=== PATIENT | female | born 1940 | race Caucasian/White ===

== ENCOUNTER → 2019-06-20 | Outpatient (CLI) | payer MEDICARE ==
--- OUTSIDE RECORDS SUMMARY | 2019-06-20 16:34 | XMS REPORT | Clinical Summary ---
Author Author [facility] Organization [facility] Address Unknown Phone Unavailable Care Team Providers Care Lead Ramp Service Man Name Role Phone Asked, No Pcp PCP Unavailable Allergies Not on File Medications Not on file Active Problems Not on file Encounters Care Team Description Date Type Specialty Babs Olivera MD Screening breast examination 09/23/2018 Hospital Rad[facility] Encounter Babs Olivera MD Screening for osteoporosis 09/23/2018 Hospital Radiology Encounter Babs Olivera MD Screening breast examination (Primary Dx); Screening for osteoporosis 09/16/2018 Transcribe Access Orders after 06/19/2018 Social History Date Tobacco Use Types Packs/Day Years Used Never Assessed Sex Assigned at Date Recorded Not on file Industry Job Start Date Occupation Not on file Not on file Not on file Travel End Travel History Travel Start No recent travel history available. Last Filed Vital Signs Not on file Plan of Treatment Health Maintenance Due Date Last Done Comments SHINGLES VACCINES (#1) 1991 65+ PNEUMOCOCCAL VACCINE 2006 (1 of 2 - PCV13) INFLUENZA VACCINE 05/11/2019 Procedures Comments Procedure Name Priority Date/Time Associated Diagnosis MAMMO BREAST SCREEN Routine 09/23/2018 Screening breast TOMOSYNTHESIS BILATERAL 3:37 PM GRAPHIC DESIGNER examination BONE DENSITY Routine 09/23/2018 Screening for 2:49 PM GRAPHIC DESIGNER osteoporosis after 06/19/2018 Results * Mammo Breast Screen Tomosynthesis Bilateral (09/23/2018 3:37 PM GRAPHIC DESIGNER) Specimen Narrative Performed At EXAMINATION: MAMMO BREAST SCREEN TOMOSYNTHESIS BILATERAL [facility] COMPARISON:Mammograms dated 09/2014 and 09/2015 TECHNIQUE: Bilateral digital screening mammography was performed with tomosynthesis and interpreted using computer-assisted detection. CLINICAL HISTORY: 77-year-old asymptomatic female with history of previous benign bilateral breast biopsies. Family history notable for a sister diagnosed with breast cancer at age 65 and daughter diagnosed with breast cancer at unknown age. The patient presents for routine screening. FINDINGS: There are scattered fibroglandular densities. A benign-appearing coarse calcification is again seen in the posterior upper outer left breast. There are no new suspicious masses, calcifications or distortions in either breast.There has been no significant interval change compared to prior. IMPRESSION: No specific mammographic features of breast malignancy. BI-RADS 2:BENIGN Recommend comparison with physical examination. In the absence of new clinical findings, the patient should return for bilateral screening mammography in 1 year. This facility is accredited by the [employer] for Mammography. A negative x-ray report should not delay biopsy if a dominant or clinically suspicious mass is present.Not all cancers are identified by x-ray. [id number] Address City/State/Zipcode Phone Number [facility] [address] [place] [address] * Bone Density (09/23/2018 2:49 PM GRAPHIC DESIGNER) Specimen Narrative Performed At [facility]AMIN[facility] CL[facility]ICAL H[facility]ORY:Evaluation for osteoporosis. COMPARISON:None. The results of this study expressed as bone mineral density (BMD) were as follows: AP spine (L1-L4) BMD: 1.14 g/cm2 T-Score: - 0.3 Percent change: Not applicable Femoral Neck (Total Mean): BMD: 0.63 g/cm2 T-Score: - 2.9 Dual Femur (Total Mean): BMD: 0.73 g/cm2 T-Score: - 2.2 Percent change: Not applicable Dual femur FRAX: Risk factors: None. Impression: 1. Bone mineral density values as above. A copy of this scans including a report detailing these results will follow. Note: The world health organization (WHO) has classified the patient's T-score as follows: Above (-1) as normal (-1) to (-2.5) as low (osteopenia) Below (-2.5) as abnormally low (osteoporosis, increased fracture risk) [id number] Procedure Note Interface, Radiology Results Incoming - 09/23/2018 4:14 PM GRAPHIC DESIGNER EXAMINATION: BONE DENSITY CLINICAL HISTORY: Evaluation for osteoporosis. COMPARISON: None. The results of this study expressed as bone mineral density (BMD) were as follows: AP spine (L1-L4) BMD: 1.14 g/cm2 T-Score: - 0.3 Percent change: Not applicable Femoral Neck (Total Mean): BMD: 0.63 g/cm2 T-Score: - 2.9 Dual Femur (Total Mean): BMD: 0.73 g/cm2 T-Score: - 2.2 Percent change: Not applicable Dual femur FRAX: Risk factors: None. Impression: 1. Bone mineral density values as above. A copy of this scans including a report detailing these results will follow. Note: The world health organization (WHO) has classified the patient's T-score as follows: Above (-1) as normal (-1) to (-2.5) as low (osteopenia) Below (-2.5) as abnormally low (osteoporosis, increased fracture risk) [id number] Performing Organization Address City/State/Zipcode Phone Number [facility] [address] [place] [address] after 06/19/2018 Insurance Type Payer Benefit Subscriber ID Effective Phone Address Plan / Dates Group HMO UHC MEDICARE UNITED xxxxxxxxx 2017-P HEALTHCARE resent MEDICARE Advance Directives For more information, please contact: [phone] 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
--- NOTE | 2019-06-20 17:30 | Diagnostic Imaging Report ---
Sacrum, 2 views. Pelvis, 1 view. History: InterStim placement check. Findings: Right posterior stimulator device is present within the lead looped in the subcutaneous tissues and terminating posterior to the mid right sacrum. The soft tissues are normal. Bone mineralization is normal. There is no evidence of fracture or dislocation. There are no lytic or sclerotic lesions. Degenerative changes are noted in the lumbar spine. SI and hip joints are within normal limits.. IMPRESSION: No acute osseous abnormality. InterStim lead displaced posteriorly. Signed by: Chucky Mcqueen on 06/20/2019 5:26 PM
== END ==
LOC: RAD 16:32 → EDSTATUS 17:08 → RAD 17:08
PROVIDERS: ATTEND Urology
DX: R39.14 Feeling of incomplete bladder emptying (principal)
CPT/HCPCS: 72170; 72220

== ENCOUNTER → 2019-10-25 | Day surgery (SDC) | payer MEDICARE ==
[2019-10-24 16:05] LABS: BASOPHILS # (AUTO) 0.1 (0.0-0.1); BASOPHILS % 0.7 % (0.0-1.0); EOSINOPHILS # (AUTO) 0.4 (0.0-0.4); EOSINOPHILS % 5.7 % (0.0-6.0); HEMATOCRIT 39.8 % (34.2-44.1); HEMOGLOBIN 13.4 g/dL (12.0-16.0); LYMPHOCYTES # (AUTO) 2.7 (1.0-3.2); LYMPHOCYTES % 38.2 % (18.0-39.1); MEAN CORPUSCULAR HEMOGLOBIN 30.4 pg (28-32); MEAN CORPUSCULAR HGB CONC 33.7 g/dL (31-35); MEAN CORPUSCULAR VOLUME 90.2 fL (81-99); MONOCYTES # (AUTO) 0.5 (0.2-0.8); MONOCYTES % 7.3 % (4.4-11.3); NEUTROPHILS # (AUTO) 3.3 (2.1-6.9); NEUTROPHILS % 47.8 % (38.7-80.0); PLATELET COUNT 196 x10e3/uL (140-360); RED BLOOD COUNT 4.41 x10e6/uL (3.6-5.1)
--- NOTE | 2019-10-24 16:21 | Diagnostic Imaging Report ---
EXAMINATION: CHEST 2 VIEWS INDICATION: Pre-operative COMPARISON: None FINDINGS: LINES/TUBES:None LUNGS:The lungs are well-inflated. No focal consolidation or pulmonary edema. Marked elevation of the right hemidiaphragm. PLEURA:No pleural effusion or pneumothorax. MEDIASTINUM:The cardiomediastinal silhouette appears normal in size and shape. BONES/SOFT TISSUES:No acute osseous injury. ABDOMEN:No free air under the diaphragm. Status post cholecystectomy. IMPRESSION: No focal pneumonia or pulmonary edema. Marked elevation of the right hemidiaphragm. Signed by: Mary Mckeon MD on 10/24/2019 4:17 PM
[~2019-10-25] MED LIST: ABILIFY5 MG PO; ACETAMINOPHEN 1000 MG/100 ML IV ONE; ALPRAZOLAM0.25 MG PO; ARMOUR THYROID60 MG PO; BLACK COHOSH160 MG PO; BUPIVACAINE HCL 0.5% INJ 30 ML VIAL INJ ONE; CLINDAMYCIN 300MG 50 ML IV ONE; CYMBALTA30 MG PO; DEXAMETHASONE SOD PHOS INJ 4 MG/ML VIAL ONE; DICYCLOMINE HCL20 MG PO; FENTANYL CITRATE/PF 100MCG/2 ML INJ ONE; FLOMAX0.4 MG PO; GENTAMICIN 80MG/NS 100 ML 200 ML IV ONE; LIDOCAINE 2%/ EPINEPHRINE 20ML MDV ONE; LIDOCAINE HCL 2% JELLY 5 ML TUBE ONE; LIDOCAINE HCL 2% LOCAL INJ 5 ML SDV VIAL INJ ONE; MECLIZINE HCL PO; MIDAZOLAM HCL 2 MG/2 ML VIAL ONE; ONDANSETRON HCL INJ 2MG/ML 2ML 2 MG/ML VIAL ONE; PIPERACILLIN/TAZO 2.25 GM 50 ML IV ONE; PROPOFOL IV EMULSION 10 MG/ML 20 ML VIAL ONE; SEVOFLURANE INHAL SOLN 250 ML PEN BTL ONE; SIMVASTATIN40 MG PO
--- OUTSIDE RECORDS SUMMARY | 2019-10-25 12:29 | XMS REPORT ---
Author Author Admin, [place] Organization Unknown Address Unknown Phone Unavailable PROBLEMS Condition Status Date Provider Notes ANXIETY DISORDER, UNSPECIFIED active Remy Campos DEPRESSIVE DISORDER, MAJOR, RECURRENT EPISODE, UNSPECIFIED active Remy Campos ENCOUNTERS Date Type Provider Location Encounter Diagnosis - Ambulatory Encounter Remy Campos [facility] UNK - Ambulatory Encounter Remy Cmapos [facility] UNK - Ambulatory Encounter Remy Campos [facility] DEPRESSIVE DISORDER, MAJOR, RECURRENT EPISODE, UNSPECIFIEDANXIETY DISORDER, UNSPECIFIED - Ambulatory Encounter Kristel Juarez [facility] UNK - [facility] - Ambulatory Encounter [facility] UNK - [facility] Ambulatory Encounter [facility] UNK - Ambulatory [facility]counter [facility] UNK [facility] Ambulatory Encounter [facility] UNK - Ambulatory Encounter [facility] UNK [facility] Amb[facility] UNK [facility] Ambulatory Encounter [facility] UNK - Ambulatory Encounter [facility] UNK - Ambulatory Encounter [facility] UNK - Ambulatory Encounter [facility] UNK - Ambulatory Encounter [facility] UNK - Ambulatory Encounter [facility] UNK - Ambulatory Encounter [facility] UNK - Ambulatory Encounter [facility] UNK - Ambulatory Encounter [facility] UNK - Ambulatory Encounter [facility] UNK - Ambulatory Encounter [facility] UNK - Ambulatory Encounter [facility] UNK - Ambulatory Encounter [facility] UNK - Ambulatory Encounter [facility] UNK - Ambulatory Encounter [facility] UNK - Ambulatory Encounter [facility] Preload [facility] UNK - Ambulatory Encounter [facility] Preload [facility] UNK - Ambulatory Encounter [facility] Preload [facility] UNK - Ambulatory Encounter [facility] Preload [facility] UNK - Ambulatory Encounter [facility] UNK - Ambulatory Encounter [facility] P[facility] UNK - Ambulatory Encounter [facility] P[facility] UNK - Ambulatory Encounter [facility] P[facility] UNK [facility] Ambulatory Encounter [facility] P[facility] UNK - Ambulatory Encounter [facility] P[facility] UNK - Ambulatory Encounter [facility] P[facility] UNK [facility] Ambulatory Encounter [facility] P[facility] UNK - Ambulatory Encounter [facility] P[facility] UNK [facility] Ambulatory Encounter [facility] P[facility] UNK - Ambulatory Encounter [facility] P[facility] UNK - Ambulatory Encounter [facility] P[facility] UNK - Ambulatory Encounter [facility] P[facility] UNK - Ambulatory Encounter [facility] UNK VITAL SIGNS No Information Available Allergies No Known Allergy Information REASON FOR REFERRAL No Information Available RESULTS No Information Available HISTORY OF IMMUNIZATIONS No Information Available HISTORY OF MEDICATION USE Medication Instructions Dates Provider Comments ABILIFY 2 MG ORAL TABLET Take 1 tablet by mouth daily. Remy Campos DORZOLAMIDE HCL-TIMOLOL MAL 22.3-6.8 MG/ML OPHTHALMIC SOLUTION INSTILL 1 DROP IN BOTH EYES TWICE A DAY Remy Campos #10, 0 days supply, Prescribed by ANA TAYLOR, Filled 03/20/2019 SIMVASTATIN 40 MG ORAL TABLET TAKE ONE (1) TABLET(S) BY MOUTH ONCE A DAY. Remy Campos #90, 0 days supply, Prescribed by Filippo Bridges, Filled 07/20/2019 DULOXETINE HCL 30 MG ORAL CAPSULE DELAYED RELEASE PARTICLES TAKE ONE (1) CAPSULE(S) BY MOUTH TWICE A DAY AND ONE CAPSULE AT BEDTIME. Remy Campos #90, 0 days supply, Prescribed by MARY JANE GUILLERMO, Filled 07/20/2019 ARMOUR THYROID 120 MG ORAL TABLET TAKE 1 TABLET BY MOUTH EVERY DAY Remy Campos #30, 0 days supply, Prescribed by MARY JANE GUILLERMO, Filled 07/26/2019 TAMSULOSIN HCL 0.4 MG ORAL CAPSULE TAKE ONE (1) CAPSULE(S) BY MOUTH ONCE A DAY 30 MINUTES AFTER SUPPER. Remy Campos #90, 0 days supply, Prescribed by AARON NAVA, Filled 08/17/2019 SOCIAL HISTORY Date Observation Value Provider social history reviewed E&M reviewed today Remy Campos smoking status Never smoker [facility] smoking status Never smoker [facility] smoking status Never smoker [facility] smoking status Never smoker [facility] FUNCTIONAL STATUS No Information Available MENTAL STATUS Date Observation Value Provider mental status assessment, judgment fair Remy Campos " insight (mental status exam) fair Remy Campos " Mental Status Exam: intelligence adequate fund of information, intact memory processes, oriented to person, oriented to place, oriented to time, oriented to situation, oriented to reality Remy Campos " hallucinations none Remy Campos " thought content (mental status exam) (E&M) lucid Remy Campos " mental status assessment, process able to abstract, goal-directed, logical Remy Campos " mental status assessment, sensorium alert, attentive, clear Remy Campos " affect (mental status exam) congruent, intense, normal range Remy Campos " mood (mental status exam) worried, anxious Remy Campos " mental status assessment, speech activity normal flow, fast pace, normal pressure, normal rate, normal tone, normal volume, spontaneous Remy Campos " mental status assessment, motor activity normal gait, normal posture Remy Campos " behavior (mental status exam) appropriate, candid, cooperative, good eye contact, polite, responsive Remy Campos " mental appearance (mental status exam) adequate hygiene, appropriate dress, looks like stated age, neat Remy Campos " anxiety sleep disturbance Remy Campos MEDICAL EQUIPMENT No Information Available FAMILY HISTORY No Information Available INSURANCE PROVIDERS No Information Available ADVANCE DIRECTIVES No Information Available TREATMENT PLAN Date Name Diagnostic evaluation with medical - 15767 HISTORY OF PROCEDURES Procedure Date Procedure Name Provider Procedure Notes Status Diagnostic evaluation with medical - 95939 Remy Campos completed GOALS No Information Available HEALTH CONCERNS No Information Available
--- OUTSIDE RECORDS SUMMARY | 2019-10-25 12:29 | XMS REPORT ---
Author Author Admin, [place] Organization Unknown Address Unknown Phone Unavailable Problems No Known Problems ENCOUNTERS Date Type Provider Location Encounter Diagnosis - Ambulatory Encounter Remy Campos [facility] UNK - Ambulatory Encounter Remy Campos [facility] UNK - Ambulatory Encounter Kristel Harpreet Juarez [facility] UNK - Ambulatory [facility] Encounter [facility] Preload [facility] UNK - [facility] - [facility] - Ambulatory En[facility] - [facility] Ambulatory Encounter [facility]ism Preload [facility] UNK - Ambulatory Encounter [facility]ism Preload [facility] UNK - Ambulatory Encounter [facility]reload [facility] UNK - Ambulatory Encounter [facility] - [facility] UNK - Ambulatory Encounter Alevism Preload [facility] UNK - Ambulatory Encounter Ale[facility]ism P[facility] UNK - Ambulatory Encounter Ale[facility]ism [facility] UNK - Ambulatory Encounter Ale[facility]ism Preload [facility] UNK - Ambulatory Encounter Ale[facility]ism P[facility] UNK - Ambulatory Encounter Alevism Preload [facility] UNK - Ambulatory Encounter Alevism Preload [facility] UNK - Ambulatory Encounter Alevism Preload [facility] UNK - Ambulatory Encounter Alevism Preload [facility] UNK - Ambulatory Encounter Alevism Preload [facility] UNK - Ambulatory Encounter Alevism Preload [facility] UNK - Ambulatory Encounter Alevism Preload [facility] UNK - Ambulatory Encounter Alevism Preload [facility] UNK - Ambulatory Encounter Alevism Preload [facility] UNK - Ambulatory Encounter Alevism Preload [facility] UNK - Ambulatory Encounter Alevism Preload [facility] UNK - Ambulatory Encounter Alevism Preload [facility] UNK - Ambulatory Encounter [facility] Encounter [facility] Preload [facility] UNK - Ambulatory Encounter [facility]ism Preload [facility] UNK - Ambulatory Encounter [facility]ism Preload [facility] UNK - Ambulatory Encounter [facility]ism Preload [facility] UNK - Ambulatory Encounter [facility]ism Preload [facility] UNK - Ambulatory Encounter [facility]ism Preload [facility] UNK - Ambulatory Encounter Ale[facility]ism Preload [facility] UNK - Ambulatory Encounter Alevism Preload [facility] UNK - Ambulatory Encounter [facility]ism Preload [facility] UNK - Ambulatory Encounter Alevism Preload [facility] UNK VITAL SIGNS No Information Available Allergies No Known Allergy Information REASON FOR REFERRAL No Information Available RESULTS No Information Available HISTORY OF IMMUNIZATIONS No Information Available HISTORY OF MEDICATION USE Medication Instructions Dates Provider Comments DORZOLAMIDE HCL-TIMOLOL MAL 22.3-6.8 MG/ML OPHTHALMIC SOLUTION [...] social history reviewed E&M reviewed today Remy Coatsos smoking status Never smoker [facility] smoking status Never smoker [facility] smoking status Never smoker [facility] smoking status Never smoker [facility] FUNCTIONAL STATUS No Information Available MENTAL STATUS Date Observation Value Provider anxiety sleep disturbance Remy Campos MEDICAL EQUIPMENT No Information Available FAMILY HISTORY No Information Available INSURANCE PROVIDERS No Information Available ADVANCE DIRECTIVES No Information Available TREATMENT PLAN No Information Available HISTORY OF PROCEDURES No Information Available GOALS No Information Available HEALTH CONCERNS No Information Available
--- OUTSIDE RECORDS SUMMARY | 2019-10-25 12:29 | XMS REPORT ---
Author Author [facility] Address Unknown Phone Unavailable Care Team Providers Care Line Director Name Role Phone AARON NAVA Unavailable Unavailable Problems This patient has no known problems. Allergies, Adverse Reactions, Alerts This patient has no known allergies or adverse reactions. Medications This patient has no known medications. Results Test Description Test Time Test Comments Text Results Atomic Results Result Comments CHEST 2 VIEWS 2019-10-24 16:16:00 [place] [address] Patient Name: ODILON SAINZ MR #: [id number] : 1940 Age/Sex: 78/F Req #: [id number] Adm Physician: Ordered by: AARON NAVA MD Report #: [id number] Location: OR Room/Bed: Procedure: [id number] DX/CHEST 2 VIEWS Exam Date: 10/24/19 Exam Time: 1600 REPORT STATUS: Signed EXAMINATION: CHEST 2 VIEWS INDICATION: Pre-operative COMPARISON: None FINDINGS: LINES/TUBES:None LUNGS:The lungs are well-inflated. No focal consolidation or pulmonary edema. Marked elevation of the right hemidiaphragm. PLEURA:No pleural effusion or pneumothorax. MEDIASTINUM:The cardiomediastinal silhouette appears normal in size and shape. BONES/SOFT TISSUES:No acute osseous injury. ABDOMEN:No free air under the diaphragm. Status post cholecystectomy. IMPRESSION: No focal pneumonia or pulmonary edema. Marked elevation of the right hemidiaphragm. Signed by: Kalani Pillai MD on 10/24/2019 4:17 PM Dictated By: KALANI PILLAI MD 16 Transcribed By: OMAIRA on 10/24/191616 COPY TO: AARON NAVA MD SACRUM X-RAY 2019-06-20 17:22:00 [facility] [address] [place] [address] Patient Name: ODILON SAINZ MR #: [id number] : 1940 Age/Sex: 78/F Req #: [id number] Adm Physician: Ordered by: AARON NAVA MD Report #: [id number] Location: [facility] Room/Bed: Procedure: [id number] DX/SACRUM X-RAY Exam Date: 06/20/19 Exam Time: 1657 REPORT STATUS: Signed Sacrum, 2 views. Pelvis, 1 view. History: InterStim placement check. Findings: Right posterior stimulator device is present within the lead looped in the subcutaneous tissues and terminating posterior to the mid right sacrum. The soft tissues are normal. Bone mineralization is normal. There is no evidence of fracture or dislocation. There are no lytic or sclerotic lesions. Degenerative changes are noted in the lumbar spine. SI and hip joints are within normal limits.. IMPRESSION: No acute osseous abnormality. InterStim lead displaced posteriorly. Signed by: Chucky Mcqueen on 06/20/2019 5:26 PM Dictated By: CHUCKY MCQUEEN MD 25 Transcribed By: OMAIRA on 06/20/191725 COPY TO: AARON NAVA MD PELVIS AP 1-2 VIEWS 2019-06-20 17:22:00 [place] [address] Patient Name: ODILON SAINZ MR #: [id number] : 1940 Age/Sex: 78/F Req #: [id number] Adm Physician: Ordered by: AARON NAVA MD Report #: [id number] Location: [facility] Room/Bed: Procedure: [id number] DX/PELVIS AP 1-2 VIEWS Exam Date: 06/20/19 Exam Time: 165 REPORT STATUS: Signed Sacrum, 2 views. Pelvis, 1 view. History: InterStim placement check. Findings: Right posterior stimulator device is present within the lead looped in the subcutaneous tissues and terminating posterior to the mid right sacrum. The soft tissues are normal. Bone mineralization is normal. There is no evidence of fracture or dislocation. There are no lytic or sclerotic lesions. Degenerative changes are noted in the lumbar spine. SI and hip joints are within normal limits..
[2019-10-25 12:30] VITALS: BP 150/71
--- OUTSIDE RECORDS SUMMARY | 2019-10-25 12:30 | XMS REPORT ---
Author Author Admin, [place] Organization Unknown Address Unknown Phone Unavailable PROBLEMS Condition Status Date Provider Notes ANXIETY DISORDER, UNSPECIFIED active Remy Campos DEPRESSIVE DISORDER, MAJOR, RECURRENT EPISODE, UNSPECIFIED active Remy Campos ENCOUNTERS Date Type Provider Location Encounter Diagnosis - Ambulatory Encounter Remy Campos Sara Wilson [facility] Contact Center UNK - Ambulatory Encounter Remy Campos Darwin Juarez [facility] Contact Center UNK - Ambulatory Encounter Remy Campos [facility] UNK - Ambulatory Encounter Remy Campos [facility] UNK - [facility] DEPRESSIVE DISORDER, MAJOR, RECURRENT EPISODE, UNSPECIFIEDANXIETY DISORDER, UNSPECIFIED - Ambulatory Encounter Kristel Juarez [facility] Contact Center UNK - Ambulatory Encounter Caodaism [facility] UNK - Ambulatory Encounter Caodaism Preload [facility] UNK - Ambulatory Encounter Caodaism Preload [facility] UNK - Ambulatory Encounter Caodaism Preload [facility] UNK - Ambulatory Encounter Caodaism Preload [facility] UNK - Ambulatory Encounter Caodaism Preload [facility] UNK [facility] Ambulatory Encounter Caodaism Preload [facility] UNK - Ambulatory Encounter Caodaism Preload [facility] UNK - Ambulatory Encounter Caodaism Preload [facility] UNK - Ambulatory Encounter Caodaism Preload [facility] UNK - Ambulatory Encounter Caodaism Preload [facility] UNK - Ambulatory Encounter Caodaism Preload [facility] UNK - Ambulatory Encounter Caodaism Preload [facility] UNK - Ambulatory Encounter Caodaism Preload [facility] UNK - Ambulatory Encounter Caodaism Preload [facility] UNK - Ambulatory Encounter Caodaism Preload [facility] UNK - Ambulatory Encounter Caodaism Preload [facility] UNK - Ambulatory Encounter Caodaism Preload [facility] UNK - Ambulatory Encounter Caodaism Preload [facility] UNK - Ambulatory Encounter Caodaism Preload [facility] UNK - Ambulatory Encounter Caodaism Preload [facility] UNK - Ambulatory Encounter Caodaism Preload [facility] UNK - Ambulatory Encounter Caodaism Preload [facility] UNK - Ambulatory Encounter Caodaism Preload [facility] UNK - Ambulatory Encounter Caodaism Preload [facility] UNK - Ambulatory Encounter Caodaism Preload [facility] UNK - Ambulatory Encounter Caodaism Preload [facility] UNK - Ambulatory Encounter Caodaism Preload [facility] UNK - Ambulatory Encounter Caodaism Preload [facility] UNK - Ambulatory Encounter Caodaism Preload [facility] UNK - Ambulatory Encounter Caodaism Preload [facility] UNK - Ambulatory Encounter Caodaism Preload [facility] UNK - Ambulatory Encounter Caodaism Preload [facility] UNK - Ambulatory Encounter Caodaism [facility]reload [facility] UNK - [facility]ulatory [facility]counter [facility] - Ambulatory Encounter Caodaism Preload [facility] UNK - Ambulatory Encounter Caodaism Preload [facility] UNK - Ambulatory Encounter Caodaism Preload [facility] UNK - Ambulatory Encounter Caodaism Preload [facility] UNK - Ambulatory Encounter Caodaism Preload [facility] UNK - Ambulatory Encounter [facility] V[facility] SIGNS No Information Available Allergies No Known Allergy Information REASON FOR REFERRAL No Information Available RESULTS No Information Available HISTORY OF IMMUNIZATIONS No Information Available HISTORY OF MEDICATION USE Medication Instructions Dates Provider Comments ABILIFY 2 MG ORAL TABLET Take 2 tablets by mouth daily. Sage Beth DORZOLAMIDE HCL-TIMOLOL MAL 22.3-6.8 MG/ML OPHTHALMIC SOLUTION [...] TAKE 1 TABLET BY MOUTH EVERY DAY SageSara Campos #30, 0 days supply, Prescribed by [...] Never smoker LinkLogic smoking status Never smoker LinkLog FUNCTIONAL STATUS No Information Available MENTAL STATUS Date Observation Value Provider mental status assessment, judgment fair Remy Campos " insight (mental status exam) fair Remy Campos " Mental Status Exam: intelligence adequate fund of information, intact memory processes, oriented to person, oriented to place, oriented to time, oriented to situation, oriented to reality Remy Campos " hallucinations none Remy Camops " thought content (mental status exam) (E&M) lucid Remy Campos " mental status assessment, process able to abstract, goal-directed, logical Remy Campos " mental status assessment, sensorium alert, attentive, clear Remy Campos " affect (mental status exam) congruent, intense, normal range Remy Campos" mood (mental status exam) worried, anxious Remy Campos " mental status assessment, speech activity normal flow, fast pace, normal pressure, normal rate, normal tone, normal volume, spontaneous Remy Campos " mental status assessment, motor activity normal gait, normal posture Remy Campos" behavior (mental status exam) appropriate, candid, cooperative, good eye contact, polite, responsive Remy Campos" mental appearance (mental status exam) adequate hygiene, appropriate dress, looks like stated age, neat Remy Campos " anxiety sleep disturbance Remy Campos MEDICAL EQUIPMENT No Information Available FAMILY HISTORY No Information Available INSURANCE PROVIDERS No Information Available ADVANCE DIRECTIVES No Information Available TREATMENT PLAN Date Name Diagnostic evaluation with medical - 53977 HISTORY OF PROCEDURES Procedure Date Procedure Name Provider Procedure Notes Status Diagnostic evaluation with medical - 96466 Remy Campos completed GOALS No Information Available HEALTH CONCERNS No Information Available
--- OUTSIDE RECORDS SUMMARY | 2019-10-25 12:30 | XMS REPORT ---
Author Author Admin, [place] Organization Unknown Address Unknown Phone Unavailable PROBLEMS Condition Status Date Provider Notes ANXIETY DISORDER, UNSPECIFIED active Remy Campos DEPRESSIVE DISORDER, MAJOR, RECURRENT EPISODE, UNSPECIFIED active Remy Campos ENCOUNTERS Date Type Provider Location Encounter Diagnosis - Ambulatory Encounter Remy Campos [facility] UNK - Ambulatory Encounter Remy Campos [facility] UNK - Ambulatory Encounter Remy Campos Darwin Wilson [facility] DEPRESSIVE DISORDER, MAJOR, RECURRENT EPISODE, UNSPECIFIEDANXIETY DISORDER, UNSPECIFIED - Ambulatory Encounter Kristel Juarez [facility] UNK - Ambulatory Encounter Evangelical Preload [facility] UNK - Ambulatory Encounter Evangelical Preload [facility] UNK - [facility]ulatory [facility]counter [facility] Evangelical Preload [facility] UNK - Ambulatory Encounter Evangelical Preload [facility] UNK - Ambulatory Encounter Evangelical [facility]ulatory Encounter Evangelical Preload [facility] UNK - Ambulatory Encounter Evangelical Preload [facility] UNK - Ambulatory Encounter Evangelical Preload [facility] UNK - Ambulatory Encounter Evangelical Preload [facility] UNK - Ambulatory Encounter Evangelical Preload [facility] UNK - Ambulatory Encounter Evangelical Preload [facility] UNK - Ambulatory Encounter Evangelical Preload [facility] UNK - Ambulatory Encounter Evangelical Preload [facility] UNK - Ambulatory Encounter Evangelical Preload [facility] UNK - Ambulatory Encounter Evangelical Preload [facility] UNK - Ambulatory Encounter Evangelical Preload [facility] UNK - Ambulatory Encounter Evangelical Preload [facility] UNK - Ambulatory Encounter Evangelical Preload [facility] UNK - Ambulatory Encounter Evangelical Preload [facility] UNK - Ambulatory Encounter Evangelical Preload [facility] UNK - Ambulatory Encounter Evangelical Preload [facility] UNK - Ambulatory Encounter Evangelical Preload [facility] UNK - Ambulatory Encounter Evangelical Preload [facility] UNK - Ambulatory Encounter Evangelical Preload [facility] UNK - Ambulatory Encounter Evangelical Preload [facility] UNK - Ambulatory Encounter Evangelical Preload [facility] UNK - Ambulatory Encounter Evangelical Preload [facility] UNK - Ambulatory Encounter Evangelical Preload [facility] UNK - Ambulatory Encounter Evangelical Preload [facility] UNK - Ambulatory Encounter Evangelical Preload [facility] UNK - Ambulatory Encounter Evangelical Preload [facility] UNK - Ambulatory Encounter Evangelical Preload [facility] UNK - Ambulatory Encounter Evangelical Preload [facility] UNK - Ambulatory Encounter Evangelical Preload [facility] UNK - Ambulatory Encounter Evangelical Preload [facility] UNK - Ambulatory Encounter Evangelical Preload [facility] UNK - Ambulatory Encounter Evangelical Preload [facility] UNK - Ambulatory Encounter Evangelical Preload [facility] UNK - Ambulatory Encounter Evangelical Preload [facility] UNK - Ambulatory Encounter Evangelical Preload [facility] UNK VITAL SIGNS No Information Available [...] #10, 0 days supply, Prescribed by ANA TAYLOR Filled 03/20/2019 SIMVASTATIN 40 MG ORAL TABLET [...] Provider mental status assessment, judgment fair Remy Camops " insight (mental status exam) fair Remy [...] Date Name Diagnostic evaluation with medical - 34947 HISTORY OF PROCEDURES Procedure Date Procedure Name Provider Procedure Notes Status Diagnostic evaluation with medical - 49006 Remy Campos completed GOALS No Information Available HEALTH CONCERNS No Information Available
--- OUTSIDE RECORDS SUMMARY | 2019-10-25 12:30 | XMS REPORT ---
Author Author Admin, [place] Organization Unknown Address Unknown Phone Unavailable PROBLEMS Condition Status Date Provider Notes ANXIETY DISORDER, UNSPECIFIED active Remy Campos DEPRESSIVE DISORDER, MAJOR, RECURRENT EPISODE, UNSPECIFIED active Remy Campos ENCOUNTERS Date Type Provider Location Encounter Diagnosis - Ambulatory Encounter Remy Campos Darwin Juarez [facility] Contact Center UNK - Ambulatory Encounter Remy Campos [facility] UNK - Ambulatory Encounter Remy Campos [facility] UNK - Ambulatory Encounter Remy Campos Darwin Wilson [facility] DEPRESSIVE DISORDER, MAJOR, RECURRENT EPISODE, UNSPECIFIEDANXIETY DISORDER, UNSPECIFIED - Ambulatory Encounter Kristel Juarez [facility] Contact Center UNK - Ambulatory Encounter Roman Catholic Preload [facility] UNK - Ambulatory Encounter Roman Catholic Preload [facility] UNK - Ambulatory Encounter Roman Catholic Preload [facility] UNK - Ambulatory Encounter Roman Catholic Preload [facility] UNK - Ambulatory Encounter Roman Catholic Preload [facility] UNK - Ambulatory Encounter Roman Catholic Preload [facility] UNK - Ambulatory Encounter Roman Catholic Preload [facility] UNK - Ambulatory Encounter Roman Catholic Preload [facility] UNK - Ambulatory Encounter Roman Catholic Preload [facility] UNK - Ambulatory Encounter Roman Catholic Preload [facility] UNK - Ambulatory Encounter Roman Catholic Preload [facility] UNK - Ambulatory Encounter Roman Catholic Preload [facility] UNK - Ambulatory Encounter Roman Catholic Preload [facility] UNK - Ambulatory Encounter Roman Catholic Preload [facility] UNK - Ambulatory Encounter Roman Catholic Preload [facility] UNK - Ambulatory Encounter Roman Catholic Preload [facility] UNK - Ambulatory Encounter Roman Catholic Preload [facility] UNK - Ambulatory Encounter Roman Catholic Preload [facility] UNK - Ambulatory Encounter Roman Catholic Preload [facility] UNK - Ambulatory Encounter Roman Catholic Preload [facility] UNK - Ambulatory Encounter Roman Catholic Preload [facility] UNK - Ambulatory Encounter Roman Catholic Preload [facility] UNK - Ambulatory Encounter Roman Catholic Preload [facility] UNK - Ambulatory Encounter Roman Catholic Preload [facility] UNK - Ambulatory Encounter Roman Catholic Preload [facility] UNK - Ambulatory Encounter Roman Catholic [facility] - [facility] Encounter Roman Catholic [facility] Ambulatory Encounter Roman Catholic P[facility] UN[facility] - Ambulatory Encounter Roman Catholic Preload [facility] UN[facility] - Ambulatory Encounter Roman Catholic Preload [facility] UN[facility] - Ambulatory Encounter Roman Catholic Preload [facility] UN[facility] - Ambulatory Encounter Roman Catholic Preload [facility] UN[facility] - Ambulatory Encounter Roman Catholic Preload [facility] UNK - Ambulatory Encounter Roman Catholic Preload [facility] UN[facility] - Ambulatory Encounter Roman Catholic Preload [facility] UN[facility] - Ambulatory Encounter Roman Catholic Preload [facility] UN[facility] - Ambulatory Encounter Roman Catholic Preload [facility] UN[facility] - Ambulatory Encounter Roman Catholic Preload [facility] UN[facility] Ambulatory Encounter Roman Catholic Preload [facility] UN[facility] - Ambulatory Encounter Roman Catholic Preload [facility] UN[facility] - Ambulatory Encounter Roman Catholic Preload [facility] UNK VITAL SIGNS No Information Available Allergies No Known Allergy Information REASON FOR REFERRAL No Information Available RESULTS No Information Available HISTORY OF IMMUNIZATIONS No Information Available HISTORY OF MEDICATION USE Medication Instructions Dates Provider Comments ABILIFY 2 MG ORAL TABLET Take 2 tablets by mouth daily. Remy Capmos DORZOLAMIDE HCL-TIMOLOL MAL 22.3-6.8 MG/ML OPHTHALMIC SOLUTION [...] Date Name Diagnostic evaluation with medical - 05715 HISTORY OF PROCEDURES Procedure Date Procedure Name Provider Procedure Notes Status Diagnostic evaluation with medical - 91704 Remy Campos completed GOALS No Information Available HEALTH CONCERNS No Information Available
--- NOTE | 2019-11-27 00:59 | Operative Report ---
DATE OF PROCEDURE: 10/25/2019 SURGEON: Terry Camejo MD PREOPERATIVE DIAGNOSIS: Malfunctioning and migrated InterStim implant for refractory urge incontinence. POSTOPERATIVE DIAGNOSIS: Malfunctioning and migrated InterStim implant for refractory urge incontinence. OPERATION PERFORMED: 1. Removal of tined quadripolar lead electrodes on the right hand side. 2. Implantation of tined quadripolar lead electrodes into the right foramen S3. 3. InterStim system implantation with incision implantation of subcutaneous sacral nerve neurostimulator with replacement of the old one. 4. Electronic analysis and complex programming. 5. Fluoroscopic guidance for needle placement. 6. Supervision of fluoroscopy, no radiologist present. ANESTHESIA: General. COMPLICATIONS: None. CLINICAL SUMMARY: Kristel Spencer is a 78-year-old woman with an InterStim implant placed in [place], [place]. It was not working properly. It was evaluated and found that the lead was migrated. Therefore, the patient is brought for replacement. She is aware of the risks of bleeding, infection, injury to adjacent structures, need for additional procedures, and elected to proceed. OPERATIVE PROCEDURE IN DETAIL: Informed consent was verified. Kristel Spencer was properly identified, taken to the operating room, where anesthesia was uneventfully begun. The patient was carefully and gently repositioned in the prone position with all pressure points well padded. Pillows were placed under her hips to flatten sacrum and under the shins to allow the feet to dangle freely. The patient's back and buttocks were prepared and draped in usual sterile fashion. First, we attempted to place a needle into the foramina S3 on the left hand side. Multiple times we were unsuccessful. We then made an incision overlying the lead. The lead was then removed. The remaining incision over the stimulator was then removed. We modified the pocket and then we placed a needle into the right foramen S3. Depth of needle was confirmed and adjusted fluoroscopically and proper needle position was confirmed by direct observation of the lifting of the perineum and observation of plantar flexion of the great toe utilizing the external test box. The needle stylet was then removed and directional guide was then placed and confirmed fluoroscopically. The foramen needle was then removed. The dilator and introducer sheath were then placed over the directional guidewire and directed into the foramen until the opaque marker of the dilator was seen at the midpoint of the sacrum. The dilator obturator was then unlocked and removed. The lead was then placed through the introducer sheath and through the first white line. It was then position, was checked fluoroscopically, and the lead was then further advanced until the electrodes were anterior to the sacrum. Each electrode was tested for the appropriate responses as mentioned above. The tunneling tool and tube were then placed in the lead site to the pocket site. The tunneling tool was then removed and the lead was then fed through the tube and brought to the pocket site. The pocket was modified so that it had the appropriate depth. Local anesthesia was utilized to infiltrate around all the incisions. The lead was cleansed of bodily fluids with sterile water and dried thoroughly, was then placed in the InterStim pulse generator with the metal bands aligned and the blue tip clearly visibile in the distal portion of the pulse generator header. A single set screw was tightened with hex wrench. After copiously irrigating all the incisions, the pulse generator was then placed in subcutaneous pocket. The programming head was then placed over the implanted neurostimulator. Impedance was verified and appeared to be in adequate parameters for all leads. Both incisions were approximated in 2 layers utilizing absorbable sutures. Mastisol, Steri-Strips, and Bioclusive dressing was applied. There were no complications to the procedure. The patient tolerated the procedure well. Sponge, needle, and instrument counts were correct x2 at the end of the case. Estimated blood loss was minimal. The patient was then transferred to the recovery room in stable condition. Utilizing the clinician operating system programmer, the patient was programmed to the lead of optimum sensation and given explicit instructions on how to use the stimulator. Terry Camejo MD [place]/MODL /[id number]
== END | disposition home or self-care (01) ==
LOC: OR 12:28
PROVIDERS: ATTEND Urology
DX: T85.113A Breakdown (mechanical) of implanted electronic neurostimulator, generator, initial encounter (principal); T85.890A Other specified complication of nervous system prosthetic devices, implants and grafts, initial encounter; N39.41 Urge incontinence; N32.9 Bladder disorder, unspecified; M79.7 Fibromyalgia; I10 Essential (primary) hypertension; M19.90 Unspecified osteoarthritis, unspecified site; F32.9 Major depressive disorder, single episode, unspecified; R42 Dizziness and giddiness; R06.02 Shortness of breath; E03.9 Hypothyroidism, unspecified; Y83.8 Other surgical procedures as the cause of abnormal reaction of the patient, or of later complication, without mention of misadventure at the time of the procedure; Z88.8 Allergy status to other drugs, medicaments and biological substances; Z88.6 Allergy status to analgesic agent; Z91.041 Radiographic dye allergy status; Z01.812 Encounter for preprocedural laboratory examination; Z01.818 Encounter for other preprocedural examination
CPT/HCPCS: 36415; 64581; 64590; 71046; 76000; 85025; 88300; 95972; C1778; C1894; J0131; J1100; J1580; J2001 ×3; J2250; J2405; J2543; J2704; J3010; L8679